=== PATIENT | female | born 1945 | race African-American/Black ===

== ENCOUNTER 2022-01-09 06:26 | Emergency (ER) | payer MEDICARE, MEDICAID ==
[~2022-01-09] VITALS: Ht 165.1 cm; Wt 53.8 kg
[2022-01-09] MEDS: SODIUM CHLORIDE 0.9% 1,000 ML IV ONE ×2 (08:22→14:36)
[2022-01-09] MEDS: ONDANSETRON HCL 4MG/2ML INJ IV STA (08:22)
[2022-01-09 08:44] LABS: BASOPHILS % 0.4 % (0.0-2.0); HEMATOCRIT. 35.1 % (36.0-48.0); HEMOGLOBIN. 11.6 g/dL (12.0-16.0); LYMPHOCYTES % 8.4 % (20.0-50.0); MEAN CORPUSCULAR HEMOGLOBIN 31.3 pg (28.0-32.0); MEAN CORPUSCULAR VOLUME 94.8 fL (81.0-99.0); MEAN PLATELET VOLUME 8.6 fl (7.4-10.4); MONOCYTES % 2.5 % (2.0-8.0); NEUTROPHILS % 88.7 % (40.0-76.0); PLATELET 255 x1000/uL (130-400)
[2022-01-09 09:07] LABS: CHLORIDE 104 mEq/L (98-107)
[2022-01-09] MEDS: METOCLOPRAMIDE HCL 10MG/2ML VIAL IV ONE (09:13)
[2022-01-09 13:57] LABS: CLARITY URINE CLEAR (CLEAR); COLOR URINE YELLOW (YELLOW); KETONES URINE 1+ (NEGATIVE); LEUKOCYTE ESTERASE URINE NEGATIVE (NEGATIVE); NITRITE URINE NEGATIVE (NEGATIVE); OCCULT BLOOD URINE NEGATIVE (NEGATIVE); PH URINE 6.5 (4.5-8.0); PROTEIN URINE NEGATIVE (NEGATIVE); SPECIFIC GRAVITY URINE 1.027 (1.005-1.030); UROBILINOGEN URINE 0.2 E.U./dL (0.2-1.0)
[2022-01-09] MEDS: CEFTRIAXONE 1 G PREMIX 50 ML IV ONE (18:01)
[2022-01-09 20:10] VITALS: BP 132/53
== END 2022-01-09 20:31 | disposition left against medical advice (07) ==
LOC: ER 06:26 → CANBEDREQ 14:12 → ER 20:31
DX: K56.609 Unspecified intestinal obstruction, unspecified as to partial versus complete obstruction (principal); R11.2 Nausea with vomiting, unspecified; R10.13 Epigastric pain; Z20.822 Contact with and (suspected) exposure to COVID-19
CPT/HCPCS: 36415; 74177; 80053; 81003; 83605; 83690; 85025; 87426; 96361; 96365; 96375; 99291; C9803; J0696; J2405; J2765; J7030